=== PATIENT | male | born 1995 | race Caucasian/White ===

== ENCOUNTER 2016-11-30 16:10 | Emergency (ER) | payer BC ==
[2016-11-30 16:30] VITALS: BP 144/52; PULSE 68; RESP 18; TEMP 98.2; O2SAT 95
--- NOTE | 2016-11-30 17:11 | EDPHY ---
H & P Time Seen by Provider: 11/30/16 16:15 HPI/ROS: CHIEF COMPLAINT: Right foot pain HISTORY OF PRESENT ILLNESS: 21-year-old male presents emergency department complaining of right foot pain. Patient was playing basketball when he jumped in landed on another player's foot, he reports he thinks he inverted his right ankle. Patient has had lateral foot pain since the accident, he has bruising and swelling. He is able to bear weight though is worse with weight-bearing. No numbness or tingling in this foot, he reports multiple previous ankle sprains. He denies knee pain. Smoking Status: Never smoked Physical Exam: GEN: Awake, alert, oriented, no acute distress RESP: nl resp effort MSK: Right ankle with full range of motion, no tenderness to palpation to ATFL , CFL, Achilles tendon. No tenderness to lateral foot squeeze. Tenderness to palpation to base of 5th metatarsal and dorsal proximal aspect of 4th metatarsal. Mild ecchymosis to lateral foot, mild swelling, 2+ pedal pulses, sensation intact to light touch SKIN: No break in skin Constitutional: Initial Vital Signs Temperature (C) 36.8 C 11/30/16 16:28 Heart Rate 68 11/30/16 16:28 Respiratory Rate 18 11/30/16 16:28 Blood Pressure 144/52 H 11/30/16 16:28 O2 Sat (%) 95 11/30/16 16:28 O2 Delivery Mode Room Air Allergies/Adverse Reactions: No Known Allergies Allergy (Unverified 11/30/16 16:28) Home Medications: Medication Instructions Recorded NK [No Known Home Meds] 11/30/16 Zoloft 100mg (*) 11/30/16 MDM/Departure - MDM Diagnostics: Right foot x-ray independently reviewed by me- Impression: Negative. No acute fracture. Dictated By: Jesus Caro MD - Depart Disposition: Home, Routine, Self-Care Clinical Impression: Right foot sprain Qualifiers: Encounter type: initial encounter Qualified Code(s): S93.601A - Unspecified sprain of right foot, initial encounter Condition: Good Instructions: Foot Sprain (ED) Additional Instructions: Rest, ice, elevate, take 600 mg of ibuprofen every 8 hours with food for 3-5 days, follow up with an orthopedist on return home to [place] for continued pain that is not improving in the next 7-10 days. Return to the emergency department for any worsening symptoms, new symptoms or concerns. Referrals: NONE *PRIMARY CARE P,. [Primary Care Provider] - As per Instructions
== END 2016-11-30 17:34 | disposition home or self-care (01) ==
DX: S93.601A Unspecified sprain of right foot, initial encounter (principal); X58.XXXA Exposure to other specified factors, initial encounter; Y92.310 Basketball court as the place of occurrence of the external cause; Y99.8 Other external cause status; Y93.67 Activity, basketball
CPT/HCPCS: L3260